=== PATIENT | female | born 1985 | race Caucasian/White ===

== ENCOUNTER 2022-07-03 07:18 | Emergency (ER) | payer OTHER ==
[~2022-07-03] VITALS: Ht 162.6 cm; Wt 74.0 kg
[2022-07-03 07:26] VITALS: BP 104/69
[2022-07-03 07:30] VITALS: BP 110/63
[2022-07-03 08:00] VITALS: BP 104/67
[2022-07-03] MEDS ORDERED: CHERATUSSIN PO (08:12)
[2022-07-03] MEDS ORDERED: DOXYCYCLINE100 MG PO (08:12)
[2022-07-03 08:21] VITALS: BP 104/67
== END 2022-07-03 08:30 | disposition home or self-care (01) | DRG 153 ==
LOC: ED 07:18
DX: J06.9 Acute upper respiratory infection, unspecified (principal); Z20.822 Contact with and (suspected) exposure to COVID-19